=== PATIENT | male | born 1945 | race Caucasian/White ===

== ENCOUNTER 2018-06-20 02:55 | Emergency (ER) | payer MEDICARE, MEDICAID ==
[~2018-06-20] VITALS: Ht 180.3 cm; Wt 62.0 kg
[2018-06-20] MEDS ORDERED: ipratropium/albuterol 3ml nebule NEB ONE (03:20)
[2018-06-20] MEDS ORDERED: normal saline 1000ML IV soln IVB ONE (03:20)
[2018-06-20] MEDS ORDERED: methylPREDNISolone sod succ 125mg/2ml vial IV ONE (03:20)
[2018-06-20 04:10] LABS: BASOPHILS # (AUTO) 0.2 X10'3 (0-0.2); BASOPHILS % (AUTO) 1.4 % (0-1); EOSINOPHILS # (AUTO) 0.8 X10'3 (0-0.9); EOSINOPHILS % (AUTO) 4.6 % (0-6); HEMATOCRIT 47.4 % (42.0-52.0); HEMOGLOBIN 15.7 g/dl (14.0-17.9); LYMPHOCYTES # (AUTO) 1.2 X10'3 (1.1-4.8); LYMPHOCYTES % (AUTO) 7.1 % (21-51); MEAN CORPUSCULAR HEMOGLOBIN 29.7 PG (27.0-31.0); MEAN CORPUSCULAR HGB CONC 33.2 % (33.0-36.5); MEAN CORPUSCULAR VOLUME 89.5 FL (78-98); MEAN PLATELET VOLUME 9.1 FL (7.4-10.4); MONOCYTES # (AUTO) 0.6 X10'3 (0-0.9); MONOCYTES % (AUTO) 3.4 % (2-12); NEUTROPHILS # (AUTO) 13.6 X10'3 (1.8-7.7); NEUTROPHILS % (AUTO) 83.5 % (42-75); PARTIAL THROMBOPLASTIN TIME 32 SECONDS (22-32); PLATELET COUNT 433 X10'3 (140-440); PROTHROMBIN TIME 10.3 SECONDS (9.0-12.0); WHITE BLOOD COUNT 16.4 X10'3 (4.5-11.0)
[2018-06-20 04:14] LABS: ALANINE AMINOTRANSFERASE 29 U/L (12-78); ALBUMIN 4.1 G/DL (3.4-5.0); ALBUMIN/GLOBULIN RATIO 0.8 (1.1-1.5); ALKALINE PHOSPHATASE 157 IU/L (46-116); ANION GAP 11 (8-16); ASPARTATE AMINO TRANSFERASE 17 U/L (10-37); BILIRUBIN,TOTAL 0.7 MG/DL (0.1-1.0); BLOOD UREA NITROGEN 18 MG/DL (7-18); BUN/CREATININE RATIO 20.5 (5.4-32.0); CALCIUM 9.5 MG/DL (8.5-10.1); CHLORIDE 100 MMOL/L (99-107); CREATININE 0.88 MG/DL (0.60-1.10); GLUCOSE 121 MG/DL (70-104); SODIUM 138 MMOL/L (135-145); TOTAL CARBON DIOXIDE 26.7 MMOL/L (24-32); TOTAL PROTEIN 9.1 G/DL (6.4-8.2); eGFR 85 ML/MIN
[2018-06-20 04:22] LABS: TROPONIN I < 0.04 NG/ML (0.0-0.05)
[2018-06-20] MEDS ORDERED: ALBU18HF2 INH (04:44)
[2018-06-20] MEDS ORDERED: AMLO5TAB PO (04:44)
[2018-06-20] MEDS ORDERED: ACET650T13 PO (04:44)
[2018-06-20] MEDS ORDERED: AMOX500C2 PO (04:44)
[2018-06-20 04:45] VITALS: BP 130/81
[2018-06-20] MEDS ORDERED: levoFLOXACIN-Levaquin 750MG/D5 150 ML IV ONE (04:55)
[2018-06-20] MEDS ORDERED: normal saline 1000ML IV soln IV ONE (04:55)
[2018-06-20] MEDS ORDERED: levoFLOXACIN 750MG TABLET PO ONE (05:00)
[2018-06-20] MEDS ORDERED: LEVO750T21 PO (05:01)
[2018-06-20] MEDS ORDERED: PRED10TA23 PO (05:01)
== END 2018-06-20 05:27 | disposition home or self-care (01) ==
LOC: ER 02:57
DX: J18.9 Pneumonia, unspecified organism (principal); Z79.899 Other long term (current) drug therapy
CPT/HCPCS: 36415; 71045; 80053; 83605; 83880; 84484; 85025; 85610; 85730; 87040; 93005; 94640; 94760; 96374; 99284; J1956; J2930; J7030